=== PATIENT | male | born 1995 | race Caucasian/White ===

== ENCOUNTER 2016-06-02 18:04 | Emergency (ER) | payer BC ==
[2016-06-02 18:20] VITALS: RESP 16; TEMP 98.5
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
--- NOTE | 2016-06-03 18:39 | DI ---
XR TIB/FIB 2VW,06/02/2016 6:20 PM: Clinical History: Trauma Previous Exam: None at this facility. Findings: AP and lateral views of the right tibia and fibula are obtained, and demonstrate anatomic alignment w ithout fractures. The surrounding soft tissues are unremarkable. Impression: No fracture.
== END 2016-06-02 18:52 | disposition home or self-care (01) ==
LOC: ER 18:04
DX: S80.11XA Contusion of right lower leg, initial encounter (principal); S80.811A Abrasion, right lower leg, initial encounter; V86.59XA Driver of other special all-terrain or other off-road motor vehicle injured in nontraffic accident, initial encounter
CPT/HCPCS: 73590; 99283

== ENCOUNTER → 2016-08-27 | Outpatient (CLI) | payer BC ==
--- NOTE | 2016-08-28 11:27 | DI ---
XR EYE FOREIGN BODY,08/27/2016 1:03 PM: Clinical History: Screening for metallic foreign body. Previous Exam: None at this facility. Findings: AP and lateral views of the orbits are obtained, and demonstrate no evidence of metallic foreign body . The paranasal sinuses are unremarkable. Visualized portions of the cervical spine are normal. Impression: No evidence of metallic foreign body.
--- NOTE | 2016-08-28 11:33 | DI ---
MRI LUMBAR SPINE W/O CN,08/27/2016 1:02 PM: Clinical History: Acute low back pain. Previous Exam: None at this facility. Findings: Multiplanar MR images are obtained through the lumbar spine without contrast. The spinal cord descends normally with normal course, caliber and a normal conus at the L1 level. Paravertebral soft tissues are unremarkable. The major vascular flow voids are unremarkable. The kidneys are unremarkable. There is a right simple cyst within the interpolar right kidney. There is no evidence of spondylolysis nor spondylolisthesis. Individual intervertebral disc spaces: L1/2: No significant stenosis. L2/3: No significant stenosis. L3/4: There is a broad-based disc bulge with some facet and ligamentum flavum hypertrophy contributin g to mild central canal stenosis without significant neuroforaminal narrowing. L4/5: There is disc desiccation and a, annular fissuring and a left paracentral through foraminal dis c extrusion with disc material that extends inferiorly along the posterior margin L5 approximately 1 cm. This causes some impingement on the descending L4 nerve root. This contributes to mild bilateral neural foraminal narrowing and mild central canal stenosis. L5/S1: There is a broad-based disc bulge mildly eccentric to the left contributing to mild left neura l foraminal narrowing. This disc extrusion extends approximately 7 mm posteriorly. Impression: L4/5: There is disc desiccation and a, annular fissuring and a left paracentral through foraminal dis c extrusion with disc material that extends inferiorly along the posterior margin L5 approximately 1 cm. This causes some impingement on the descending L4 nerve root. This contributes to mild bilateral neural foraminal narrowing and mild central canal stenosis. L5/S1: There is a broad-based disc bulge mildly eccentric to the left contributing to mild left neura l foraminal narrowing. This disc extrusion extends approximately 7 mm posteriorly.
== END ==
LOC: MRI 12:57
PROVIDERS: ATTEND Physician Assistant Medical
DX: M54.5 Low back pain (principal); M51.16 Intervertebral disc disorders with radiculopathy, lumbar region; M47.27 Other spondylosis with radiculopathy, lumbosacral region; M51.27 Other intervertebral disc displacement, lumbosacral region; Z57.8 Occupational exposure to other risk factors
CPT/HCPCS: 70030; 72148

== ENCOUNTER → 2016-09-11 | Outpatient (CLI) | payer BC ==
--- NOTE | 2016-09-11 17:38 | DI ---
XR L-SPINE MIN 4 VW,09/11/2016 11:05 AM: Clinical History: Low back pain. Previous Exam: None available. Findings: AP, lateral, flexion and extension views are obtained, and demonstrate anatomic alignment without fra ctures. Vertebral body height is preserved. Intervertebral disc height is also preserved. A nonobstructive bowel gas pattern is seen. No pathologic calcifications are seen. Impression: Normal lumbar spine.
== END ==
LOC: ORTHO 11:21
PROVIDERS: ATTEND Physician Assistant
DX: M54.5 Low back pain (principal); R20.0 Anesthesia of skin; F17.200 Nicotine dependence, unspecified, uncomplicated
CPT/HCPCS: 72110

== ENCOUNTER 2016-09-26 06:52 | Day surgery (SDC) | payer BC ==
[~2016-09-26 06:52] MED LIST: BUPivacaine Inj 0.25% PF - 10ml vial IV ONE; DEXAMETHASONE PF 10 MG/1 ML VIAL IV ONE; Iopamidol Inj 61% 50 ML VIAL INTRATHEC ONE
--- NOTE | 2016-09-26 07:55 | GEN.OPNOTE ---
Transforaminal DAVION Procedure: Transforaminal Epidural Steriod Injection Procedure Code - Neurosurgery: 78182 : Lumbar Transforaminal Epidural, 56070 : Lumbar Transforaminal Epidural (Add'l Levels) Preoperative Diagnosis: Lumbar Disc Herniation Postoperative Diagnosis: same -: Consent: Rationale for procedure, nature of procedure, possible risks and benefits were discussed with the patient. Risks including allergic reaction to medications, known effects of steroid medications including transient elevation in blood sugar with aggravation of pre-existing diabetes and remote risk of aseptic necrosis of the hip. Pain at the injection site, inadvertent dural puncture with resultant in CSF leak and headache possibly requiring further treatment. Infection or bleeding with potential risk of neurologic injury with weakness, paralysis or were all reviewed with the patient who wished to proceed. Anesthesia, sedation: No intravenous access or sedation was used. Physiologic monitoring of pulse and oxygen saturation was utilized. Procedure: The patient was placed prone on the operating room table, prepped with Chloraprep and sterilely draped. The skin was anesthetized with 1% Buffered Xylocaine. Under fluoroscopic control a 22-gauge Touhy needle was advanced into the area of the Kambin's triangle at the L5S1 level. Imaging confirmation of needle placement in the posterior, inferior and lateral quadrant of the foramen was obtained. Omnipaque was injected under real-time fluoroscopy demonstrating and epidurogram. Following this 1 ml of a mixture of dexamethasone (10mg/ml) and 1% ropivacaine was injected. AP and lateral images of the final needle placement was obtained. The needle was removed, the same was done at S1 and the patient returned to the post procedure recovery room where they were monitored for any side effects. Pain assessment: Preprocedure pain []/10, post procedure pain []/10. Discharge instructions: Patient was given a pain log to be filled out and returned. A delayed response to the steroids of 2-5 days was discussed.
[2016-09-26 10:02] VITALS: RESP 17; TEMP 97.1
== END 2016-09-26 08:11 | disposition home or self-care (01) ==
LOC: SDSC 06:52
PROVIDERS: ATTEND Pain Medicine Interventional Pain Medicine
DX: M51.26 Other intervertebral disc displacement, lumbar region (principal)
CPT/HCPCS: 64483; 64484; 76000; S0020; J1100

== ENCOUNTER → 2016-11-06 | Outpatient (CLI) | payer BC ==
[2016-11-06 12:06] LABS: BASOPHILS # (AUTO) 0.04 10*3/UL; BASOPHILS % (AUTO) 0.7 % (0-1); EOSINOPHILS # (AUTO) 0.09 10*3/UL; EOSINOPHILS % (AUTO) 1.6 % (0-8); HEMATOCRIT 48.1 % (42.0-52.0); HEMOGLOBIN 16.4 g/dL (14.0-18.0); LYMPHOCYTES # (AUTO) 1.92 10*3/uL; MEAN CORPUSCULAR HEMOGLOBIN 29.2 PG (27-31); MEAN CORPUSCULAR HGB CONC 34.1 g/dL (33-37); MEAN CORPUSCULAR VOLUME 85.7 FL (80-90); MEAN PLATELET VOLUME 9.9 FL (7.4-12.2); MONOCYTES # (AUTO) 0.44 10*3/UL (0.3-0.8); MONOCYTES % (AUTO) 7.7 % (5-15); NEUTROPHILS # (AUTO) 3.23 10*3/UL; NEUTROPHILS % (AUTO) 56.3 % (50-80); PLATELET MORPHOLOGY COMMENT NORMAL MORPHOLOGY (NORM); RBC MORPHOLOGY COMMENT NORMAL MORPHOLOGY (NORM); RED BLOOD COUNT 5.61 10^6/uL (4.70-6.10); WBC MORPHOLOGY COMMENT NORMAL MORPHOLOGY (NORM)
[2016-11-06 12:12] LABS: BLOOD UREA NITROGEN 17 mg/dL (7-22); BUN/CREATININE RATIO 18.88 (6-20); CALCIUM 10.2 mg/dL (8.7-10.7); EST GLOMERULAR FILTRATION > 60 (>60 ml/min/1.73m(2))
--- NOTE | 2016-11-06 12:41 | DI ---
PA /LATERAL CHEST X-RAY, 11/06/2016 11:32 AM : Clinical History: Smoker. Previous Exam: None at this facility. There is no acute soft tissue or bony abnormality. Heart size is normal. Lungs are clear. Mediastinal structures are normal. There are no pulmonary nodules. Reading: Normal chest x-ray.
== END ==
LOC: RAD 11:23
PROVIDERS: ATTEND Neurological Surgery
DX: Z01.812 Encounter for preprocedural laboratory examination (principal); M51.26 Other intervertebral disc displacement, lumbar region; Z72.0 Tobacco use
CPT/HCPCS: 36415; 71020; 80053; 85025; 87641

== ENCOUNTER 2018-07-22 05:58 | Observation (INO) ==
[2018-07-22] MEDS ORDERED: HYDROmorphone 2 MG/1 ML IVP ONE ×2 (06:35→07:50)
[2018-07-22] MEDS ORDERED: ONDANSETRON 4 MG/2 ML VIAL IVP ONE (06:35)
[2018-07-22] MEDS ORDERED: Sodium Chloride 0.9% 1,000 ML PRIMARY IV ONE (06:35)
[2018-07-22 06:46] LABS: BASOPHILS # (AUTO) 0.04 10*3/UL; BASOPHILS % (AUTO) 0.3 % (0-1); EOSINOPHILS # (AUTO) 0.06 10*3/UL; EOSINOPHILS % (AUTO) 0.5 % (0-8); Hematocrit [HCT] 44.8 % (42.0-52.0); Hemoglobin [HGB] 15.2 g/dL (14.0-18.0); LYMPHOCYTES # (AUTO) 1.59 10*3/uL; MEAN CORPUSCULAR HEMOGLOBIN 28.3 PG (27-31); MEAN CORPUSCULAR HGB CONC 33.9 g/dL (33-37); MEAN CORPUSCULAR VOLUME 83.4 FL (80-90); MONOCYTES # (AUTO) 0.86 10*3/UL (0.3-0.8); NEUTROPHILS # (AUTO) 9.75 10*3/UL; NEUTROPHILS % (AUTO) 79.1 % (50-80); RED BLOOD COUNT 5.37 10^6/uL (4.70-6.10)
[2018-07-22 06:47] LABS: PLATELET MORPHOLOGY COMMENT NORMAL MORPHOLOGY (NORM); RBC MORPHOLOGY COMMENT NORMAL MORPHOLOGY (NORM); WBC MORPHOLOGY COMMENT NORMAL MORPHOLOGY (NORM)
[2018-07-22 06:53] LABS: BLOOD UREA NITROGEN 12 mg/dL (7-22); LIPASE 188 IU/L (23-300); SERUM ALBUMIN 5.1 g/dL (3.5-4.8)
--- NOTE | 2018-07-22 07:38 | DI ---
CT Abdomen/Pelvis W Contrast,07/22/2018 6:36 AM: Clinical History: Right lower quadrant pain Previous Exam: 03/07/18 Findings: Multiple helically acquired CT images are obtained through the abdomen and pelvis following the intra venous administration of contrast, and demonstrate an enlarged inflamed appendix with an appendicolit h at the origin. This measures 15 mm in diameter and there is associated periappendiceal fat strandin g. The liver, gallbladder, spleen, pancreas, adrenals and kidneys are unremarkable. The urinary bladd er is unremarkable. There is no free air nor free fluid. The anterior abdominal wall and subcutaneous fat is normal. There are degenerative changes of the lumbar spine and patient is status post transpe dicular fusion of L5/S1. There is no mesenteric nor retroperitoneal lymphadenopathy. Subcentimeter hypodensities are seen with in the kidneys. Impression: Acute appendicitis without evidence of perforation or abscess.
[2018-07-22 07:49] LABS: BILIRUBIN,URINE NEGATIVE (NEG); CLARITY,URINE CLEAR (CLEAR); COLOR,URINE YELLOW (Y); GLUCOSE, URINE (UA) NEGATIVE (NEG); OCCULT BLOOD,URINE NEGATIVE (NEG); PROTEIN,URINE NEGATIVE (NEG); UROBILINOGEN,URINE 0.2 EU/dL (0.2)
[2018-07-22 07:50] LABS: URINE SAMPLE TYPE CLEAN CATCH URINE
--- NOTE | 2018-07-22 07:55 | PDOC ---
Abdomen/Flank HPI - General Chief Complaint: Abdomen Pain Stated Complaint: Right Lower ABD Pain Date Seen by Provider: 07/22/18 Time Seen by Provider: 06:25 Source: POSITIVE: Patient, Spouse Exam Limitations: POSITIVE: No limitations Nurse's Notes Reviewed & Considered: Yes - History of Present Illness Initial Comments: The patient is a 23-year-old male. He presents to the emergency room complaining of right lower quadrant abdominal pain. He states he was awakened around 4 hours [employer]VIS[employer] with this pain. He states he's had some associated nausea and a few episodes of vomiting. One loose bowel movement. He is not aware of a ny fevers. He has not had any similar episodes. No dysuria. He states he tried to eat a granola bar about 2 hours [employer] and this induced vomiting. He's had low back surgery in the past. He takes lisinopril. He states he is allergic to Keflex. No melena, hematochezia, hematemesis, dysuria or hematuria Body Location Affected: REPORTS: Abdomen Timing: REPORTS: Gradual, Getting Worse Duration: 4-6 hours Severity: Moderate Quality: REPORTS: "Pain" Abdominal Pain Onset Location: REPORTS: RLQ Abdominal Pain Radiation: REPORTS: No radiation Context: REPORTS: None Modifying Factors: improves with: Movement, Walking Associated Symptoms: REPORTS: Nausea, Vomiting Similar Symptoms Previously: No Recent Care Received: REPORTS: Denies Any Prior Injuries Related to Current Complaint?: No - Patient Home Medications Home Medications: Home Medications Acetaminophen [Tylenol] 325 mg PO PRN 03/07/18 Ibuprofen 200 mg PO PRN 03/07/18 Lisinopril 2.5 mg PO DAILY 07/22/18 - Patient Allergies Allergies/Adverse Reactions: Allergies Allergy/AdvReac Type Severity Reaction Status Date / Time cephalexin [From Keflex] Allergy NAUSEA Verified 07/22/18 05:59 Past Medical History - heen HEENT History: Denies History Cardiovascular History: Denies History Respiratory History: Denies History Gastrointestinal History: Denies History Genitourinary History: Denies History Endocrine History: Denies History Musculoskeletal History: Back Pain Neurological History: Denies History Blood Disorders: Denies History Psychiatric History: Denies History History of Sexually Transmitted Diseases: No Male Reproductive History: Denies History Cancer History: Denies History In Past Year Been Physically Harmed or Verbally Threatened: No History of MDRO: No History of Other Communicable Diseases: No Tobacco Use: Never Smoker Alcohol Use: None In the Past 12 Months, Have Used or Abuse Any Substance: None Previous Surgical History: Yes Type / Date of Surgery: Back Surgey Significant Family History: No pertinent family hx Past Medical History Reviewed: Reviewed - No Changes ROS - Limitations ROS Limitations: No Limitations Constitution: REPORTS: Denies Symptoms Cardiovascular: REPORTS: Denies Cardiac Symptoms Respiratory: REPORTS: Denies Resp Symptoms Neurological: REPORTS: Denies Neuro Symptoms Gastrointestinal: REPORTS: Abdominal Pain, Nausea, Vomitting Endocrine: REPORTS: Denies Symptoms Musculoskeletal: REPORTS: Denies MS Symptoms Genitourinary: REPORTS: Denies Symptoms Eyes: REPORTS: Denies Symptoms ENT: REPORTS: Denies Symptoms Skin: REPORTS: Denies Skin Symptoms Lympathic: REPORTS: Denies Lympathic Symptoms Immunologic: POSITIVE: Denies Symptoms Psychiatric: POSITIVE: Denies Psych Symptoms Abdominal/Flank Pain PE - General Appearance General Appearance: POSITIVE: Alert, Cooperative, No Acute Distress, No Evidence of Trauma - HEENT HEENT: POSITIVE: Head Inspection Nml, Eyes Inspection Nml, Ears Inspection Nml, Nose Inspection Nml, Oral/Dental Inspect. Nml, Pharynx Inspect. Nml, PERRL, EOMI - Neck Neck: POSITIVE: Normal Inspection, No Apparent Injury - Respiratory Respiratory: POSITIVE: No Respiratory Distress, Breath Sounds Normal, Chest Non- Tender - Cardiovascular Cardiovascular: POSITIVE: Regular Rate and Rhythm, Heart Sounds Normal, Equal Pulses, Strong Pulses Peripheral Pulses: Radial (R): 2+, Radial (L): 2+ - Chest Chest: POSITIVE: Non Tender - Abdomen Abdomen: Soft: (All Quadrants), Normal Bowel Sounds: (All Quadrants), Denies Tenderness: (LUQ), (LLQ), No Splenomegaly: (All Quadrants), No Hepatomegaly: (All Quadrants), No Guarding: (All Quadrants), No Rebound: (All Quadrants), No Palpable Pulse: (All Quadrants), No Palpabale Mass: (All Quadrants), No Distention: (All Quadrants), No Rigidity: (All Quadrants), Tenderness Noted: (RUQ), (RLQ) Additional Abdominal Details: Bowel sounds are present; though possibly somewhat decreased. Patient has pain on palpation over the right lower quadrant and right periumbilical area. Some rebound. No masses, or organomegaly. - Back Back: POSITIVE: Normal Inspection. NEGATIVE: CVA Tenderness (R), CVA Tenderness (L) - Skin Skin: POSITIVE: Intact, Normal For Race, Warm, Dry, No Rash - Extremities Extremity: Non-Tender: (All Extremities), Normal ROM: (All Extremities), Normal Inspection: (All Extremities) - Neurological Neurological: POSITIVE: Affect Apporpriate, Oriented X3, road conductor Normal As Tested, Motor Normal, Sensation Normal - Psychological Psychiatric: POSITIVE: Affect Appropriate, Mood Appropriate Images - Complete Complete: 1 - Area of pain Abdomen Progress - Results Reviewed by me Xrays/CTs/US Reviewed by me: Yes Discussed with Radiologist: Yes Radiology Findings: CT scan abdomen and pelvis with IV contrast shows an enlarged inflamed appendix with an appendicolith with para-appendiceal fat stranding compatible with appendicitis Lab Results Reviewed by Me: Yes CBC and BMP: 07/22/18 06:26 07/22/18 06:26 Lab Results:: Laboratory Results 07/22/18 07/22/18 06:26 06:26 WBC 12.33 H RBC 5.37 Hgb 15.2 Hct 44.8 MCV 83.4 MCH 28.3 MCHC 33.9 RDW Std Deviation 46.5 RDW Coeff of Cori 15.3 H Plt Count 217 MPV 10.0 Immature Gran % (Auto) 0.2 Neut % (Auto) 79.1 Lymph % (Auto) 12.9 Mccormick % (Auto) 7.0 Eos % (Auto) 0.5 Baso % (Auto) 0.3 Immature Gran # (Auto) 0.03 Neut # (Auto) 9.75 Lymph # (Auto) 1.59 Mccormick # (Auto) 0.86 H Eos # (Auto) 0.06 Baso # (Auto) 0.04 WBC Morphology Comment Normal morphology Plt Morphology Comment Normal morphology RBC Morph Comment Normal morphology Sodium 142 Potassium 4.0 Chloride 102 Carbon Dioxide 23 Anion Gap 17 BUN 12 Creatinine 0.8 Estimated GFR > 60 BUN/Creatinine Ratio 15.00 Glucose 103 Calculated Osmolality 293.0 H Calcium 9.7 Total Bilirubin 0.7 AST 52 ALT 25 Alkaline Phosphatase 70 Total Protein 8.4 H Albumin 5.1 H Globulin 3.3 Albumin/Globulin Ratio 1.50 Amylase 69 Lipase 188 - Patient's Progress Pain Medication Addressed: POSITIVE: Yes (Patient given a total of 2 mg of Dilaudid IV in the emergency room, along with Zofran 4 mg IV with some blunting of pain) School/Work Release Addressed: POSITIVE: Not Applicable Re-examine Time: 07:40 Re-Examine Comment: Patient and his were advised that the patient has appendicitis. Patient kept nothing by mouth. Case discussed with Dr. Souza, surgeon, who will come to the emergency room to further evaluate and treat. Status: POSITIVE: Unchanged, Re-Examined - Consult Consult (If Yes, Name of Consulting MD & Time Called): Yes (Dr. Souza, surgeon, [id number]) Consulting MD will see pt:: POSITIVE: In ED Counseled: POSITIVE: Patient, Family (), RE: Lab Results, RE: Radiology Results, RE: DX, RE: Need for F/U Patient Care Time - Estimated PCT Patient Care Time (In Minutes): 45 Vital Signs - Recent Vital Signs Vital Signs: Vital Signs (Last 8 hours) Temp Pulse Resp BP Pulse Ox 07/22/18 05:58 96.3 F L 79 22 164/97 94 - VS Reviewed Vital Signs Reviewed: Yes Discharge Clinical Impression: Appendicitis Discharge Disposition: Other (Care transferred to Dr. Souza, surgeon, who comes to the emergency room to further evaluate and treat patient.) Condition: Stable Follow Up With: Susie Oakes [Primary Care Provider] - Care Transferred To: care transferred to Dr. Souza at 0727
[2018-07-22] MEDS ORDERED: LIDOCAINE MPF 2% - 5 ML (20 MG/1 ML) ONE (08:54)
[2018-07-22] MEDS ORDERED: PROPOFOL 10 MG/1 ML (200 MG/20 ML) VIAL IV ONE (08:54)
[2018-07-22] MEDS ORDERED: fentaNYL Inj 250 MCG/5 ML VIAL ONE (08:55)
[2018-07-22] MEDS ORDERED: ROCURONIUM 10 MG/1 ML - 5 ML VIAL IVP ONE ×2 (08:55→09:45)
[2018-07-22] MEDS ORDERED: MIDAZOLAM 5 MG/1 ML ONE (08:55)
[2018-07-22] MEDS ORDERED: BUPIVACAINE 0.25% W/ EPI - 10 ML VIAL ONE (09:09)
--- NOTE | 2018-07-22 09:12 | CONSULT ---
Consult Note - Consult Consult Date: 07/22/18 Reason for Consult: PreOp Consulation : General Surgery Requesting Physician: Dr. Kirby Primary Care Provider: ELIZABETH Taylor - History of Present Illness History of Present Illness: Patient is a 23-year-old male who woke up at about 3 AM this morning with right- sided abdominal pain. Once he got up he had profuse nausea and vomiting. He also had some diarrhea. He presented to the emergency room this morning. CT scan shows findings of acute appendicitis. The appendix is in a retrocecal location. His white count is slightly elevated at 12,300. He has never had a pain like this before. He felt fine when he went to bed last night. He denies fever or chills. He's had no prior abdominal surgery. CT and exam are consistent with acute appendicitis. He'll be taken to the operating room for an appendectomy. The appendectomy will be done open as it is retrocecal and quite inflamed. It is also higher than usual. Review of Systems - Gastrointestinal Gastrointestinal / Abdominal: REPORTS: Nausea, Vomiting, Diarrhea, Abdominal Pain, See HPI Past Medical History Medical History: High blood pressure. Chronic back pain. Surgical History: Back surgeries X2. Tobacco Use: Never Smoker Do you dip or chew tobacco: Yes (Can a day) In the Past 12 Months, Have Used or Abuse Any of the Following Substance: None Alcohol Use: Occasionally Medication / Allergies Home Medications: Home Medications Medication Instructions Recorded Confirmed Acetaminophen [Tylenol] 325 mg PO PRN 03/07/18 07/22/18 Ibuprofen 200 mg PO PRN 03/07/18 07/22/18 Lisinopril 2.5 mg PO DAILY 07/22/18 07/22/18 Allergies/Adverse Reactions: Allergies Allergy/AdvReac Type Severity Reaction Status Date / Time cephalexin [From Keflex] Allergy NAUSEA Verified 07/22/18 05:59 Results - Labs CBC and BMP: 07/22/18 06:26 07/22/18 06:26 - Imaging Status: Image Reviewed by Me (And discussed with the radiologist.), Report Reviewed by Me Exam - Vitals Vital Signs: Vital Signs Temperature 96.3 F Temperature Source Temporal Artery Scan Pulse Rate [Pulse Oximeter 79 Right] Respiratory Rate 22 Blood Pressure [Left Arm] 164/97 Pulse Ox 94 Oxygen Delivery Method Room Air Height 5 ft 11 in Weight 220 lb - General General Appearance: Cooperative, Mild Distress - Respiratory Respiratory Exam: POSITIVE: Clear to Auscultation - Bilaterally, Breathing Non Labored - Cardiovascular Cardiovascular Exam: POSITIVE: RRR, No Murmur - GI/Abdominal GI/Abdominal Exam: POSITIVE: Non Distended, Soft, Guarding, Diminished Bowel Sounds Additional GI/Abdominal Exam Details: Focal right lower quadrant tenderness with guarding and localized rebound. Negative Rovsing's. No signs of diffuse peritonitis. - Rectal Rectal Exam: POSITIVE: Deferred - Neurological Neurological Exam: POSITIVE: Alert, Oriented x 3 - Psychiatric Psychiatric Exam: POSITIVE: Normal Affect, Normal Mood Assessment and Plan - Patient Problems (1) Acute appendicitis Current Visit: Yes Status: Acute Priority: High Onset Date: 07/22/18 Comment: Proceed with appendectomy.The procedure has been discussed with the patient in complete yet simple terms including benefits, risks, and alternatives. All questions have been answered. Informed consent has been obtained. The patient's mother and significant other were present while I was talking to the patient. Code(s): K35.80 - Unspecified acute appendicitis Qualifiers: Acute appendicitis type: with localized peritonitis Appendicitis perforation presence: without perforation Appendicitis abscess presence: without abscess
[2018-07-22] MEDS ORDERED: ERTAPENEM 1 GM VIAL ONE (09:17)
[2018-07-22] MEDS ORDERED: Sodium Chloride 0.9% 100 ML IV ONE (09:17)
[2018-07-22] MEDS ORDERED: Nasal Sanitizer POPSWAB ampule 3 AMP (Nozin) PREOP DOSE ENOS SCH (09:20)
[2018-07-22] MEDS ORDERED: Ertapenem Inj 1 GM in Sodium Chloride 0.9% 100 ML IV SCH (09:20)
[2018-07-22] MEDS ORDERED: Lactated Ringers 1,000 ML PRIMARY IV SCH ×2 (09:20→11:19)
[2018-07-22] MEDS ORDERED: Acetaminophen 1000mg Inj 1,000 MG/100 ML VIAL IV ONE (09:30)
[2018-07-22] MEDS ORDERED: SUFENTANIL 50 MCG/1 ML ONE (09:46)
[2018-07-22] MEDS ORDERED: KETOROLAC 30 MG/1 ML VIAL ONE (09:58)
[2018-07-22] MEDS ORDERED: SUGAMMADEX SODIUM 200 MG/2 ML VIAL IV ONE (09:58)
[2018-07-22] MEDS ORDERED: BUPIVACAINE 0.5% W/ EPI - 10 ML VIAL ONE (10:04)
--- NOTE | 2018-07-22 10:40 | GEN.OPNOTE ---
Operative Note Surgery Date: 07/22/18 Preoperative Diagnosis: Acute retrocecal appendicitis. Postoperative Diagnosis: Acute retrocecal appendicitis. Procedure: Open appendectomy. Surgeon: Colton Souza MD Anesthesia Provider: Bassem Johnson CRNA Anesthesia Type: General Estimated Blood Loss (mL): 30 Fluids: 900 mL of crystalloid. 1 g of IV Invanz at the start of the procedure. 60 mg of IM Toradol at the end of the procedure. 1 g of IV acetaminophen at the end of the procedure. Pathology: Specimen to pathology. Indications: exam and CT scan consistent with acute appendicitis. Findings: Acute appendicitis. The appendix was in a retrocecal location. No perforation. Complications: none. Operative Summary: Patient was taken to the operating room and placed on the operating table in the supine position. Following the induction of adequate general anesthetic the abdomen was prepped and draped in a sterile fashion. A surgical timeout was done. The incision site was infiltrated with 1/4% Marcaine with epinephrine. Standard incision was made over McBurney's point. It was carried down to the fascia with electrocautery. The external oblique was split along the course of its fibers using electrocautery. The external oblique was retracted. The abdominal wall was transected using a muscle-splitting technique. The peritoneum was elevated and incised. An Gaudencio retractor was placed. The cecum and appendix were mobilized. The appendix was retrocecal location and the cecum was tethered. It was also high riding. Once fully mobilized the mesoappendix was taken down by serially clamping dividing and ligating the mesoappendix until the appendix was freed to its base. The base of the appendix was clamped with a straight clamp. The clamp was unclamped and moved distally. The base was tied off with an 0 chromic. The appendix was amputated. The stump was cauterized. The cecum was returned to a relative anatomic position. Hemostasis was assured. Appropriate irrigation and suctioning were performed. The cecum was returned to the relative anatomic position and covered with omentum. The peritoneum was closed with 2-0 Vicryl. The muscle layers were closed with 0 Vicryl. The wound was irrigated as we closed in layers. Final irrigation was 1/2% Marcaine with epinephrine. This was allowed to sit in the wound for several minutes and then removed. Bryson's fascia was closed with 2-0 Vicryl. The skin was closed with surgical jalen followed by a sterile dressing. The patient tolerated the entire procedure well without complication. He was taken to the recovery room in stable condition. All counts were correct. Patient Problems - Patient Problem List (1) Acute appendicitis Current Visit: Yes Status: Acute Onset Date: 07/22/18 Priority: High Code(s): K35.80 - Unspecified acute appendicitis Qualifiers: Acute appendicitis type: with localized peritonitis Appendicitis perforation presence: without perforation Appendicitis abscess presence: without abscess Category: Medical Procedure Codes - Surgical Procedures Primary Surgical Procedure: 30275 : Appendectomy
[2018-07-22] MEDS: HYDROmorphone 2 MG/1 ML IVP PRN ×3 (10:43→11:04)
[2018-07-22] MEDS ORDERED: HYDROmorphone 2 MG/1 ML ONE ×2 (10:43→11:06)
--- NOTE | 2018-07-22 10:45 | CRNA.PROGR ---
Anesthesia Time - Procedure/Recovery Time Start Date: 07/22/18 End Date: 07/22/18 Anesthesia : Time In: 09:16 Anesthesia : Time Out: 10:40 Anesthesia : Total Time: 84 - Total Anesthesia Time Total Anesthesia Time (minutes): 84 - Other Weight: 99.79 kg Height: 5 ft 11 in Body Mass Index (BMI): 30.7 Physical Status: P1 Anesthesia Type: General Anesthesia : ET
--- NOTE | 2018-07-22 10:46 | CRNA.PROGR ---
Post Anesthesia Phase II - Post Anesthesia Phase II Patient Stable and Discharged To: Phase II Care Assumed By Surgeon: Colton Souza MD Temperature: 98.4 F Pulse Rate: 89 Respiratory Rate: 18 Blood Pressure: 145/76 Pulse Ox: 94 Total Lynette Score at Discharge: 10 Post Anesthesia Discharge Criteria Met: Yes
[2018-07-22] MEDS ORDERED: Lactated Ringers 1,000 ML PRIMARY IV ONE (11:15)
[2018-07-22] MEDS ORDERED: ONDANSETRON 4 MG/2 ML VIAL IVP PRN (11:19)
[2018-07-22] MEDS: oxyCODONE-ACETAMINOPHEN 5-325 TAB PO PRN ×3 (11:59→21:50)
[2018-07-22] MEDS: MORPHINE SULFATE 2 MG/1 ML IVP PRN ×2 (12:56→19:33)
[2018-07-22] MEDS: KETOROLAC 15 MG/1 ML VIAL IVP SCH ×2 (16:05→21:50)
[2018-07-22] MEDS ORDERED: MORPHINE SULFATE 2 MG/1 ML IVP PRN (21:01)
[2018-07-22] MEDS: DOCUSATE 100 MG CAPSULE PO SCH (21:50)
[2018-07-23] MEDS: oxyCODONE-ACETAMINOPHEN 5-325 TAB PO PRN ×3 (02:12→10:22)
[2018-07-23] MEDS: KETOROLAC 15 MG/1 ML VIAL IVP SCH (03:40)
[2018-07-23 05:19] LABS: BASOPHILS # (AUTO) 0.02 10*3/UL; BASOPHILS % (AUTO) 0.3 % (0-1); EOSINOPHILS # (AUTO) 0.08 10*3/UL; EOSINOPHILS % (AUTO) 1.2 % (0-8); Hematocrit [HCT] 39.3 % (42.0-52.0); LYMPHOCYTES # (AUTO) 1.52 10*3/uL; MEAN CORPUSCULAR HEMOGLOBIN 28.3 PG (27-31); MEAN CORPUSCULAR HGB CONC 33.1 g/dL (33-37); MEAN CORPUSCULAR VOLUME 85.6 FL (80-90); MEAN PLATELET VOLUME 10.4 FL (7.4-12.2); MONOCYTES % (AUTO) 7.6 % (5-15); NEUTROPHILS # (AUTO) 4.41 10*3/UL; NEUTROPHILS % (AUTO) 67.5 % (50-80); RED BLOOD COUNT 4.59 10^6/uL (4.70-6.10)
[2018-07-23 05:28] LABS: PLATELET MORPHOLOGY COMMENT NORMAL MORPHOLOGY (NORM); RBC MORPHOLOGY COMMENT NORMAL MORPHOLOGY (NORM); WBC MORPHOLOGY COMMENT NORMAL MORPHOLOGY (NORM)
[2018-07-23 05:29] LABS: BLOOD UREA NITROGEN 9 mg/dL (7-22); BUN/CREATININE RATIO 11.25 (6-20)
[2018-07-23 07:06] VITALS: BP 141/75; RESP 16; TEMP 97; O2SAT 96
[2018-07-23] MEDS ORDERED: Ertapenem Inj 1 GM in Sodium Chloride 0.9% 100 ML IV SCH (09:00)
[2018-07-23] MEDS ORDERED: LISINOPRIL 10 MG TABLET PO SCH (09:00)
--- NOTE | 2018-07-23 09:01 | DCSUMMARY ---
Discharge Summary Admit Date: 07/22/18 Discharge Date: 07/23/18 Admitting Diagnosis: acute appendicitis. Discharge Diagnosis: Acute appendicitis. Primary Surgery and Date: open appendectomy. 07/22/2018 Hospital Course: The patient is a 23-year-old male who presented with findings on CT scan suggestive of acute appendicitis. He was taken to the operating room for an appendectomy. His recovery has been uneventful. He was tolerating a regular diet. He is passing gas. He has had a bowel movement. He is voiding. He is comfortable. He is fully ambulatory. He is ready to be discharged home for outpatient follow-up. Exam - Vitals Vital Signs: Vital Signs Temperature 97 F Temperature Source Temporal Artery Scan Pulse Rate [Pulse Oximeter 79 Right] Pulse Rate 76 Respiratory Rate 16 Blood Pressure [Right Arm] 141/75 Blood Pressure [Left Arm] 164/97 Blood Pressure 137/75 Pulse Ox 96 Oxygen Flow Rate 2L Oxygen Delivery Method Room Air Height 5 ft 11 in Weight 214 lb 9.6 oz - General General Appearance: No Acute Distress, Cooperative - Respiratory Respiratory Exam: POSITIVE: Clear to Auscultation - Bilaterally, Breathing Non Labored - Cardiovascular Cardiovascular Exam: POSITIVE: RRR, No Murmur - GI/Abdominal GI/Abdominal Exam: POSITIVE: Normal Bowel Sounds, Non Distended, Soft Additional GI/Abdominal Exam Details: The dressing is clean, dry, and intact. There is some incisional tenderness. The rest of the abdominal exam is benign. - Rectal Rectal Exam: POSITIVE: Deferred - Neurological Neurological Exam: POSITIVE: Alert, Oriented x 3 - Psychiatric Psychiatric Exam: POSITIVE: Normal Affect, Normal Mood Data Peritnent Studies: CT scan showing findings consistent with acute appendicitis. Procedures: Open appendectomy-07/22/2018 Patient Problems - Patient Problem List (1) Acute appendicitis Current Visit: Yes Status: Acute Onset Date: 07/22/18 Priority: High Comment: Status post appendectomy. Doing very well. Ready to be discharged home after his IV antibiotics this morning. Code(s): K35.80 - Unspecified acute appendicitis Qualifiers: Acute appendicitis type: with localized peritonitis Appendicitis perforation presence: without perforation Appendicitis abscess presence: without abscess Category: Medical
[2018-07-23] MEDS: DOCUSATE 100 MG CAPSULE PO SCH (09:11)
== END 2018-07-23 10:26 | disposition home or self-care (01) ==
LOC: ER 05:58 → MED/SURG 09:10 → OR 09:10
PROVIDERS: ADMIT Surgery; ATTEND Surgery